=== PATIENT | male | born 1990 | race American Indian/Alaskan Native ===

== ENCOUNTER 2018-08-01 00:25 | Emergency (ER) | payer SELFPAY ==
[2018-08-01 01:06] VITALS: BP 139/100
[2018-08-01 02:15] LABS: Alanine Aminotransferase 22 units/L (7-56); BUN/Creatinine Ratio 16; Blood Urea Nitrogen 13 mg/dL (9-20); Calcium 8.9 mg/dL (8.4-10.2); Hemolysis Index 32; Lipase 71 units/L (13-60)
[2018-08-01 02:21] LABS: Basophils % (Auto) 0.4 % (0.0-1.8); Eosinophils # (Auto) 0.1 K/mm3 (0.0-0.4); Eosinophils % (Auto) 2.1 % (0.0-4.3); Hematocrit 37.7 % (35.5-45.6); Lymphocytes % (Auto) 38.3 % (13.4-35.0); Mean Corpuscular HGB Conc 32 % (32-34); Mean Corpuscular Volume 74 fl (84-94); Monocytes # (Auto) 0.3 K/mm3 (0.0-0.8); Monocytes % (Auto) 13.6 % (0.0-7.3); Platelet Count 208 K/mm3 (140-440); Red Blood Count 5.13 M/mm3 (3.65-5.03); Red Cell Distribution Width 14.4 % (13.2-15.2)
[2018-08-01 02:24] LABS: Mean Corpuscular Hemoglobin 24 pg (28-32)
== END 2018-08-01 01:05 | disposition left against medical advice (07) ==
LOC: ED 00:25
DX: R19.7 Diarrhea, unspecified (principal); Z53.21 Procedure and treatment not carried out due to patient leaving prior to being seen by health care provider
CPT/HCPCS: 36415; 80053; 83690; 85025

== ENCOUNTER 2019-02-15 15:28 | Emergency (ER) | payer OTHER ==
--- NOTE | 2019-02-15 16:08 | Emergency Department Report ---
Chief Complaint: Anxiety Stated Complaint: HEART SHOCK Time Seen by Provider: 02/15/19 16:05 - HPI History of Present Illness: pt presents with palpitations PEREZ, throat feels dry hx of anxiety, states was previously prescribed xanax but did not take it due to making him feel drowsy at work states these sx feel similar to previous anxiety attacks (+) marijuana, (+) ETOH MSE screening note: Focused history and physical exam performed. Due to findings the following was ordered: EKG, labs ED Disposition for MSE Condition: Stable
[2019-02-15 16:18] VITALS: BP 152/97
[2019-02-15 17:18] LABS: Basophils % (Auto) 0.4 % (0.0-1.8); Eosinophils # (Auto) 0.1 K/mm3 (0.0-0.4); Eosinophils % (Auto) 4.9 % (0.0-4.3); Hemoglobin 12.4 gm/dl (11.8-15.2); Lymphocytes # (Auto) 0.9 K/mm3 (1.2-5.4); Lymphocytes % (Auto) 35.6 % (13.4-35.0); Mean Corpuscular HGB Conc 32 % (32-34); Mean Corpuscular Volume 73 fl (84-94); Monocytes # (Auto) 0.3 K/mm3 (0.0-0.8); Monocytes % (Auto) 12.1 % (0.0-7.3); Platelet Count 220 K/mm3 (140-440); Red Cell Distribution Width 15.3 % (13.2-15.2)
[2019-02-15 17:21] LABS: BUN/Creatinine Ratio 15; Blood Urea Nitrogen 16 mg/dL (9-20); Calcium 9.3 mg/dL (8.4-10.2); Hemolysis Index 7
[2019-02-15] MEDS ORDERED: ATARAX PO ONE (20:00)
--- NOTE | 2019-02-15 20:09 | Emergency Department Report ---
ED General Adult HPI - General Chief complaint: Anxiety Stated complaint: HEART SHOCK Time Seen by Provider: 02/15/19 16:05 Source: patient Mode of arrival: Ambulatory Limitations: No Limitations - History of Present Illness Initial comments: pt presents with palpitations , PEREZ, throat feels dry , hx of anxiety, states was previously prescribed xanax but did not take it due to making him feel drowsy at work , states these sx feel similar to previous anxiety attacks , (+) marijuana, (+) ETOH Onset/Timin -: week(s), unknown (recurring issue ) Location: chest Radiation: non-radiation Severity scale (0 -10): 4 Quality: sharp Consistency: intermittent Improves with: rest Worsens with: other (anxiety ) Associated Symptoms: chest pain, malaise, shortness of breath Treatments Prior to Arrival: none - Related Data Previous Rx's Medication Instructions Recorded Last Taken Type Ibuprofen 800 mg PO TID PRN #30 tablet 02/15/19 Unknown Rx Allergies Allergy/AdvReac Type Severity Reaction Status Date / Time No Known Allergies Allergy Verified 02/15/19 15:32 ED Review of Systems ROS: Stated complaint: HEART SHOCK Other details as noted in HPI Constitutional: malaise Eyes: denies: eye pain, eye discharge, vision change ENT: denies: ear pain, throat pain, congestion Respiratory: denies: cough, shortness of breath, wheezing Cardiovascular: chest pain (right lateral chest wall pain with deep breathing, and movement). denies: palpitations Endocrine: no symptoms reported Gastrointestinal: denies: abdominal pain, nausea, diarrhea Genitourinary: denies: urgency, dysuria Musculoskeletal: denies: back pain, joint swelling, arthralgia Skin: denies: rash, lesions Neurological: denies: headache, weakness, paresthesias Psychiatric: anxiety. denies: auditory hallucinations, visual hallucinations, homicidal thoughts, suicidal thoughts Hematological/Lymphatic: denies: easy bleeding, easy bruising ED Past Medical Hx - Past Medical History Hx Psychiatric Treatment: Yes (anxiety) - Surgical History Past Surgical History?: No - Social History Smoking Status: Current Every Day Smoker Substance Use Type: Alcohol, Marijuana - Medications Home Medications: Home Medications Medication Instructions Recorded Confirmed Last Taken Type Ibuprofen 800 mg PO TID PRN #30 tablet 02/15/19 Unknown Rx ED Physical Exam - General Limitations: No Limitations General appearance: alert, in no apparent distress - Head Head exam: Present: atraumatic, normocephalic - Eye Eye exam: Present: normal appearance, PERRL, EOMI Pupils: Present: normal accommodation - ENT ENT exam: Present: normal orophraynx, mucous membranes moist, TM's normal bilaterally, normal external ear exam - Neck Neck exam: Present: normal inspection, full ROM, lymphadenopathy. Absent: tenderness, meningismus - Respiratory Respiratory exam: Present: normal lung sounds bilaterally, chest wall tenderness (right anterior lateral ). Absent: respiratory distress, wheezes, stridor, accessory muscle use - Cardiovascular Cardiovascular Exam: Present: regular rate, normal rhythm, normal heart sounds. Absent: systolic murmur, diastolic murmur, rubs, gallop - GI/Abdominal GI/Abdominal exam: Present: soft, normal bowel sounds. Absent: distended, tende rness, guarding, rebound, rigid, bruit, hernia - Rectal Rectal exam: Present: deferred - Extremities Exam Extremities exam: Present: normal inspection - Back Exam Back exam: Present: normal inspection, full ROM. Absent: tenderness, CVA tenderness (R), CVA tenderness (L) - Neurological Exam Neurological exam: Present: alert, oriented X3, CN II-XII intact, normal gait, reflexes normal - Psychiatric Psychiatric exam: Present: normal affect, normal mood, anxious. Absent: agitated, homicidal ideation, suicidal ideation - Skin Skin exam: Present: warm, dry, intact, normal color. Absent: rash ED Course Vital Signs 02/15/19 16:16 Temperature 98.0 F Pulse Rate 79 Respiratory 16 Rate Blood Pressure 152/97 O2 Sat by Pulse 97 Oximetry ED Medical Decision Making - Lab Data Result diagrams: 02/15/19 16:26 02/15/19 16:26 - EKG Data EKG shows normal: sinus rhythm, axis, intervals, QRS complexes, ST-T waves Rate: normal - EKG Data When compared to previous EKG there are: previous EKG unavailable Interpretation: normal EKG (ekg interp by ed attending, nsr no st elevation no ectopy ) - Radiology Data Radiology results: image reviewed normal cxr no infiltrates no opacities. - Medical Decision Making Ekg: NSR, cxr: normal labs, there is no SI no HI, pain is rated at 0/10 at this time, there is no concern for cardiac pain , pain is reproducible to palpation, pain is relieved by otc nsaids and rest, exacerabated by worring, there is no sob no dizziness no lightheadedness no n/v no back pain pt is a/o x 3 ambulatory with steady gait , nad at this time, pt will follow up with [facility] tomorrow, advises to stop Marijuana use. Critical care attestation.: If time is entered above; I have spent that time in minutes in the direct care of this critically ill patient, excluding procedure time. ED Disposition Clinical Impression: Chest wall pain, Marijuana smoker Disposition: TO HOME OR SELFCARE Is pt being admited?: No Does the pt Need Aspirin: No Condition: Stable Instructions: Costochondritis (ED) Prescriptions: Ibuprofen 800 mg PO TID PRN #30 tablet PRN Reason: pain Referrals: [facility] [Outside] - 3-5 Days Forms: Work/School Release Form(ED) Time of Disposition: 21:22
--- NOTE | 2019-02-15 21:11 | XRay Report ---
PROCEDURE: XR CHEST ROUTINE 2V TECHNIQUE: PA and lateral chest radiographs were obtained. HISTORY: chest pain COMPARISONS: None. FINDINGS: Heart: Normal. Mediastinum/Vessels: Normal. Lungs/Pleural space: Normal. Bony thorax: No acute osseous abnormality. IMPRESSION: Normal examination. This document is electronically signed by Anders Martinez MD., February 15 2019 09:08:39 PM ET
== END 2019-02-16 01:00 | disposition home or self-care (01) ==
LOC: ED 15:28
DX: R07.89 Other chest pain (principal); F41.9 Anxiety disorder, unspecified; F17.200 Nicotine dependence, unspecified, uncomplicated; F12.10 Cannabis abuse, uncomplicated
CPT/HCPCS: 36415; 71046; 80048; 83735; 84100; 85025; 93005; 93010